=== PATIENT | female | born 1990 | race Caucasian/White ===

== ENCOUNTER 2017-08-22 14:27 | Emergency (ER) | payer OTHER ==
[~2017-08-22] VITALS: Ht 157.5 cm; Wt 77.3 kg
[2017-08-22 14:39] VITALS: Ht 157.5 cm; Wt 77.3 kg
[2017-08-22 16:05] LABS: APPEARANCE SLT CLOUDY (CLEAR); BILIRUBIN 1+ (NEGATIVE); COLOR AMBER (YELLOW); GLUCOSE NEGATIVE (NEGATIVE); HCG URINE NEGATIVE (NEGATIVE); KETONE NEGATIVE (NEGATIVE); NITRITE NEGATIVE (NEGATIVE); PROTEIN TRACE mg/dL (NEGATIVE); SPECIFIC GRAVITY 1.025 (1.005-1.020)
[2017-08-22 16:07] LABS: RED CELLS - URINE 0-5 /hpf (0-5)
[2017-08-22 16:08] LABS: BACTERIA FEW /hpf (NONE SEEN); EPITHELIAL CELLS 0-5 /hpf (0-5)
[2017-08-22 16:09] LABS: MUCUS <1+ /lpf (NONE SEEN)
[2017-08-22] MEDS ORDERED: IBUPROFEN800 MG PO (16:44)
[2017-08-22] MEDS ORDERED: ACETAMINOPHEN500 M1 PO (16:44)
[2017-08-22] MEDS ORDERED: CYCLOBENZAPRINE10 MG PO (16:44)
[2017-08-22 17:05] VITALS: BP 127/75
== END 2017-08-22 17:05 | disposition home or self-care (01) ==
LOC: D.ER 14:27
PROVIDERS: Family Medicine
DX: M54.5 Low back pain (principal); V49.9XXA Car occupant (driver) (passenger) injured in unspecified traffic accident, initial encounter; Y93.89 Activity, other specified; Y92.410 Unspecified street and highway as the place of occurrence of the external cause; W01.0XXA Fall on same level from slipping, tripping and stumbling without subsequent striking against object, initial encounter; F17.200 Nicotine dependence, unspecified, uncomplicated